=== PATIENT | male | born 1980 | race Caucasian/White ===

== ENCOUNTER 2020-01-30 05:39 | Outpatient (CLI) | payer BC ==
[~2020-01-30] VITALS: Ht 182 cm; Wt 113.6 kg
[~2020-01-30 05:39] MED LIST: AC500T PO; ACHD5005 PO; CPR500T PO; HYDR118S10 PO; IBUP-30 PO; LRT10T PO; METR500T PO; NAPR220T29 PO; NYST1000 PO; ONDA2VIA PO; PANT20TA2 PO
[2020-01-30] MEDS ORDERED: BREX3TAB PO (12:33)
[2020-01-30] MEDS ORDERED: LISD40CA3 PO (12:33)
[2020-01-30] MEDS ORDERED: FLUO20CA42 PO (12:33)
== END 2020-01-30 12:46 | disposition home or self-care (01) ==
LOC: PREOP 05:39
PROVIDERS: ATTEND Surgery
DX: Z01.818 Encounter for other preprocedural examination (principal)

== ENCOUNTER 2021-06-27 17:17 | Emergency (ER) | payer SELFPAY ==
[~2021-06-27] VITALS: Ht 182 cm; Wt 120.2 kg
[~2021-06-27 17:17] MED LIST changes: +BREX3TAB PO; +FLUO20CA42 PO; +LISD40CA3 PO
[2021-06-27] MEDS ORDERED: LIDOCAINE UROJET 2% GEL 10 ML PKG ONE (17:49)
[2021-06-27 17:52] LABS: BASOPHILS # (AUTO) 0.1 10^3/uL (0.0-0.1); BASOPHILS % (AUTO) 1 % (0-10); EOSINOPHILS # (AUTO) 0.2 10^3/uL (0.0-0.3); EOSINOPHILS % (AUTO) 3 % (0-10); HEMATOCRIT 42 % (40-54); LYMPHOCYTES # (AUTO) 1.6 10^3/uL (1.0-4.0); LYMPHOCYTES % (AUTO) 28 % (12-44); MEAN CORPUSCULAR HEMOGLOBIN 30 pg (25-34); MEAN CORPUSCULAR HGB CONC 33 g/dL (32-36); MEAN CORPUSCULAR VOLUME 89 fL (80-99); MEAN PLATELET VOLUME 9.4 fL (9.0-12.2); MONOCYTES # (AUTO) 0.7 10^3/uL (0.0-1.0); MONOCYTES % (AUTO) 12 % (0-12); NEUTROPHILS # (AUTO) 3.2 10^3/uL (1.8-7.8); NEUTROPHILS % (AUTO) 55 % (42-75); PLATELET COUNT 264 10^3/uL (130-400); WHITE BLOOD COUNT 5.8 10^3/uL (4.3-11.0)
[2021-06-27] MEDS ORDERED: LACTATED RINGERS 1,000 ML IV ONE (18:00)
[2021-06-27 18:03] LABS: ALBUMIN 3.8 GM/DL (3.2-4.5); POTASSIUM 4.2 MMOL/L (3.6-5.0)
[2021-06-27 18:04] LABS: CALCIUM 8.7 MG/DL (8.5-10.1)
[2021-06-27 18:05] LABS: BILIRUBIN,URINE NEGATIVE (NEGATIVE); CLARITY,URINE CLEAR; COLOR,URINE YELLOW; GLUCOSE, URINE (UA) NEGATIVE (NEGATIVE); KETONES,URINE NEGATIVE (NEGATIVE); LEUKOCYTE ESTERASE ,URINE NEGATIVE (NEGATIVE); NITRITE,URINE NEGATIVE (NEGATIVE); PROTEIN,URINE NEGATIVE (NEGATIVE)
[2021-06-27 18:07] LABS: BILIRUBIN,TOTAL 0.4 MG/DL (0.1-1.0)
[2021-06-27] MEDS ORDERED: PANT20TA2 PO (18:07)
[2021-06-27] MEDS ORDERED: BUPR1FIL3 SL (18:07)
[2021-06-27] MEDS ORDERED: DULO30CA3 PO (18:07)
[2021-06-27] MEDS ORDERED: PROM25TA14 (18:07)
[2021-06-27] MEDS ORDERED: PROM25TA14 PO (18:07)
[2021-06-27] MEDS ORDERED: CITA10TA12 PO (18:07)
[2021-06-27] MEDS ORDERED: ARIP10TA10 PO (18:07)
[2021-06-27 18:09] LABS: CREATININE SERUM 0.87 MG/DL (0.60-1.30)
[2021-06-27 18:14] LABS: BACTERIA,URINE TRACE /HPF; WBC,URINE RARE /HPF
[2021-06-27 18:33] LABS: AMYLASE 36 U/L (25-125)
[2021-06-27 18:34] LABS: AMPHETAMINE SCREEN, URINE NEGATIVE (NEGATIVE); BARBITURATE SCREEN URINE NEGATIVE (NEGATIVE); BENZODIAZEPINES SCREEN URINE NEGATIVE (NEGATIVE); CANNABINOID SCREEN, URINE POSITIVE (NEGATIVE); COCAINE SCREEN URINE NEGATIVE (NEGATIVE); METHADONE STAT NEGATIVE (NEGATIVE); METHAMPHETAMINE SCREEN URINE S NEGATIVE (NEGATIVE); OPIATE SCREEN URINE NEGATIVE (NEGATIVE); OXYCODONE STAT NEGATIVE (NEGATIVE); PROPOXYPHENE STAT NEGATIVE (NEGATIVE); TRICYCLIC ANTIDEPRESSANTS SCRE NEGATIVE (NEGATIVE)
[2021-06-27] MEDS ORDERED: ONDANSETRON 4 MG/2 ML (SDV) Z0FRAN IVP STA (18:38)
[2021-06-27 18:42] LABS: LIPASE 54 U/L (8-78)
[2021-06-27 18:51] LABS: INR 0.9 (0.8-1.4); PROTHROMBIN TIME PATIENT 12.7 SEC (12.2-14.7)
[2021-06-27] MEDS ORDERED: NS 100 ML (IVPB) BAG IV ONE (19:00)
[2021-06-27] MEDS ORDERED: HOLD METFORMIN - RECEIVED CONTRAST 20 ML VIAL IV SCH (19:00)
[2021-06-27] MEDS ORDERED: IOHEXOL 350 MG/ML 100 ML (OMNIPAQUE 350) VIAL IV ONE (19:00)
--- NOTE | 2021-06-27 19:11 | ED GI ---
General Chief Complaint: Abdominal/GI Problems Stated Complaint: STOMACH DISTENDED/SOB/UNABLE TO URINATE Nursing Triage Note: PT PRESENTS TO ED VIA POV FROM HOME WITH COMPLAINTS OF ABDOMINAL BLOATING AND PAIN, SOA WITH EXERTION, INABILITY TO URINATE, AND DEHYDRATION. History of Present Illness Date Seen by Provider: Jun 27, 2021 Time Seen by Provider: 18:00 Initial Comments 40-year-old male presents for abdominal distention, swelling, shortness of air and difficulty urinating. He reports a history of enlarged prostate and self cathing that occurs every 6 to 9 months. He denies any recent illness, fevers or changes in medication. He is on Suboxone and denies any recent drug use. He has been trying to decrease his alcohol intake, he has only had 2 drinks in the last few days. His medical management is by Dr. Denton at [facility]. Denies chest pain. History of elevated Liver enzymes approx 6 months ago, he was managed at [facility] by Dr. Crow. He vapes and obtains his cartridges at convenience store Timing/Duration: 12-24 Hours Severity/Quality: Moderate Location: Generalized Abdomen Radiation: RUQ Associated Symptoms: No Back Pain, No Chest Pain, No Diaphoresis, No Fever/Chills, No Headache; Nausea/Vomiting, Shortness of Air, Swelling/Mass in Abdomen; No Syncope Allergies and Home Medications Allergies Coded Allergies: No Known Drug Allergies (Unverified , 01/30/20) Patient Home Medication List Home Medication List Reviewed: Yes Aripiprazole (Abilify) 10 Mg Tablet, 10 MG PO, (Reported) Entered as Reported by: ELMER BRAY on 06/27/211806 Last Action: New Order Buprenorphine HCl/Naloxone HCl (Suboxone 8 mg-2 mg Sl Film) 1 Each Film, 1 EACH SL, (Reported) Entered as Reported by: ELMER BRAY on 06/27/211806 Last Action: New Order Citalopram Hydrobromide (Celexa) 10 Mg Tablet, 10 MG PO, (Reported) Entered as Reported by: ELMER BRAY on 06/27/211806 Last Action: New Order Duloxetine HCl (Cymbalta) 30 Mg Capsule.dr, 30 MG PO, (Reported) Entered as Reported by: ELMER BRAY on 06/27/211806 Last Action: New Order Pantoprazole Sodium (Protonix) 20 Mg Tablet.dr, 20 MG PO DAILY, (Reported) Entered as Reported by: ELMER BRAY on 06/27/211806 Last Action: New Order Promethazine HCl (Promethazine Tablet) 25 Mg Tablet, (Reported) Entered as Reported by: ELMER BRAY on 06/27/211806 Last Action: New Order Promethazine HCl (Promethazine Tablet) 25 Mg Tablet, 25 MG PO Q6H PRN for NAUSEA/VOMITING, (Reported) Entered as Reported by: ELMER BRAY on 06/27/211806 Last Action: New Order Discontinued Medications Brexpiprazole (Rexulti) 3 Mg Tablet, 3 MG PO DAILY, (Reported) Discontinued Reason: No Longer Taking Entered as Reported by: UMER OBRIEN on 01/30/201232 Last Action: Discontinued Fluoxetine HCl (Prozac) 20 Mg Capsule, 20 MG PO DAILY, (Reported) Discontinued Reason: No Longer Taking Entered as Reported by: UMER OBRIEN on 01/30/201232 Last Action: Discontinued Lisdexamfetamine Dimesylate (Vyvanse) 40 Mg Capsule, 40 MG PO DAILY, (Reported) Discontinued Reason: No Longer Taking Entered as Reported by: UMER OBRIEN on 01/30/201232 Last Action: Discontinued Review of Systems Review of Systems Constitutional: see HPI; No dizziness, No fever; malaise EENTM: No Symptoms Reported, See HPI Respiratory: See HPI; Denies Cough; SOA With Exertion; Denies SOA at Rest, Denies Wheezing Cardiovascular: No Symptoms Reported, See HPI Gastrointestinal: See HPI, Abdomen Distended, Abdominal Pain; Denies Blood Streaked Stools, Denies Diarrhea; Nausea, Poor Appetite; Denies Rectal Bleeding Genitourinary: See HPI, Other (Dysuria) Musculoskeletal: no symptoms reported, see HPI Skin: no symptoms reported, see HPI All Other Systems Reviewed Negative Unless Noted: Yes Past Pfqoxss-Ackoez-Ijewvz Hx Patient Social History Tobacco Use?: No Substance use?: No Alcohol Use?: Yes Alcohol type: Beer Alcohol Frequency: Daily Pt feels they are or have been: No Immunizations Up To Date Tetanus Booster (TDap): Less than 5yrs PED Vaccines UTD: No First/Initial COVID19 Vaccinat: YES-MODERNA Second COVID19 Vaccination Andrade: YES-MODERNA Seasonal Allergies Seasonal Allergies: No Past Medical History Surgery/Hospitalization HX: PROSTATE, GERD, CHRONIC ABDOMINAL ISSUES, Surgeries: Yes (EGD,COLONOSCOPY, WISDOM TEETH) Respiratory: No Cardiac: No Neurological: No Reproductive Disorders: No Sexually Transmitted Disease: No HIV/AIDS: No Genitourinary: No Gastrointestinal: Yes (RECTAL BLEEDING) Colitis, Gastroesophageal Reflux, Hiatal Hernia, Ulcer Musculoskeletal: No Endocrine: No HEENT: No (GLASSES) Loss of Vision: Denies Hearing Impairment: Denies Cancer: No Psychosocial: Yes Anxiety, Depression Integumentary: Yes (LEFT THUMB) Eczema Blood Disorders: No Adverse Reaction/Blood Tranf: No (N/A) Family Medical History Reviewed Nursing Family Hx Not obtainable due to adoption Physical Exam Vital Signs Vital Signs - First Documented 06/27/21 06/27/21 17:53 20:38 Temp 36.1 Pulse 105 Resp 18 B/P (MAP) 158/113 (128) Pulse Ox 99 O2 Delivery Room Air Capillary Refill : Less Than 3 Seconds Height/Weight/BMI Height: 6'0.00" Weight: 235lbs. 0.0oz. 106.200247tt; 36.00 BMI Method:Stated General Appearance: WD/WN, mild distress HEENT: PERRL/EOMI, normal ENT inspection, TMs normal, pharynx normal Neck: non-tender, full range of motion, supple, normal inspection Respiratory: chest non-tender, lungs clear, normal breath sounds; No respiratory distress Cardiovascular: normal peripheral pulses, regular rate, rhythm, tachycardia (95-102) Gastrointestinal: abnormal bowel sounds (Hyperactive), distended, tenderness (Right upper quadrant) Extremities: normal range of motion, non-tender, normal capillary refill, pedal edema (1+) Back: normal inspection, no CVA tenderness Neurologic/Psychiatric: no motor/sensory deficits, alert, normal mood/affect, oriented x 3 Skin: normal color, warm/dry; No jaundice Exam Comments generalized edema and becomes SOA easily with exertion or talking. Progress/Results/Core Measures Results/Orders Lab Results Laboratory Tests Test 06/27/21 17:45 06/27/21 18:00 Range/Units White Blood Count 5.8 4.3-11.0 10^3/uL Red Blood Count 4.70 4.30-5.52 10^6/uL Hemoglobin 14.0 13.3-17.7 g/dL Hematocrit 42 40-54 % Mean Corpuscular Volume 89 80-99 fL Mean Corpuscular Hemoglobin 30 25-34 pg Mean Corpuscular Hemoglobin Concent 33 32-36 g/dL Red Cell Distribution Width 12.1 10.0-14.5 % Platelet Count 264 130-400 10^3/uL Mean Platelet Volume 9.4 9.0-12.2 fL Immature Granulocyte % (Auto) 0 % Neutrophils (%) (Auto) 55 42-75 % Lymphocytes (%) (Auto) 28 12-44 % Monocytes (%) (Auto) 12 0-12 % Eosinophils (%) (Auto) 3 0-10 % Basophils (%) (Auto) 1 0-10 % Neutrophils # (Auto) 3.2 1.8-7.8 10^3/uL Lymphocytes # (Auto) 1.6 1.0-4.0 10^3/uL Monocytes # (Auto) 0.7 0.0-1.0 10^3/uL Eosinophils # (Auto) 0.2 0.0-0.3 10^3/uL Basophils # (Auto) 0.1 0.0-0.1 10^3/uL Immature Granulocyte # (Auto) 0.0 0.0-0.1 10^3/uL Prothrombin Time 12.7 12.2-14.7 SEC INR Comment 0.9 0.8-1.4 Activated Partial Thromboplast Time 28 24-35 SEC Sodium Level 135 135-145 MMOL/L Potassium Level 4.2 3.6-5.0 MMOL/L Chloride Level 98 98-107 MMOL/L Carbon Dioxide Level 21 21-32 MMOL/L Anion Gap 16 H 5-14 MMOL/L Blood Urea Nitrogen 10 7-18 MG/DL Creatinine 0.87 0.60-1.30 MG/DL Estimat Glomerular Filtration Rate 113 BUN/Creatinine Ratio 11 Glucose Level 151 H 70-105 MG/DL Calcium Level 8.7 8.5-10.1 MG/DL Corrected Calcium 8.9 8.5-10.1 MG/DL Total Bilirubin 0.4 0.1-1.0 MG/DL Aspartate Amino Transf (AST/SGOT) 44 H 5-34 U/L Alanine Aminotransferase (ALT/SGPT) 36 0-55 U/L Alkaline Phosphatase 71 40-136 U/L Troponin I < 0.028 <0.028 NG/ML C-Reactive Protein High Sensitivity 3.49 H 0.00-0.50 MG/DL B-Type Natriuretic Peptide 157.9 H <100.0 PG/ML Total Protein 7.0 6.4-8.2 GM/DL Albumin 3.8 3.2-4.5 GM/DL Amylase Level 36 25-125 U/L Lipase 54 8-78 U/L Serum Alcohol < 10 <10 MG/DL Urine Color YELLOW Urine Clarity CLEAR Urine pH 6.0 5-9 Urine Specific [place] 1.010 L 1.016-1.022 Urine Protein NEGATIVE NEGATIVE Urine Glucose (UA) NEGATIVE NEGATIVE Urine Ketones NEGATIVE NEGATIVE Urine Nitrite NEGATIVE NEGATIVE Urine Bilirubin NEGATIVE NEGATIVE Urine Urobilinogen 0.2 < = 1.0 MG/DL Urine Leukocyte Esterase NEGATIVE NEGATIVE Urine RBC (Auto) NEGATIVE NEGATIVE Urine RBC NONE /HPF Urine WBC RARE /HPF Urine Squamous Epithelial Cells NONE /HPF Urine Renal Epithelial Cells NONE /HPF Urine Crystals NONE /LPF Urine Bacteria TRACE /HPF Urine Casts NONE /LPF Urine Mucus NEGATIVE /LPF Urine Culture Indicated NO Urine Opiates Screen NEGATIVE NEGATIVE Urine Oxycodone Screen NEGATIVE NEGATIVE Urine Methadone Screen NEGATIVE NEGATIVE Urine Propoxyphene Screen NEGATIVE NEGATIVE Urine Barbiturates Screen NEGATIVE NEGATIVE Ur Tricyclic Antidepressants Screen NEGATIVE NEGATIVE Urine Phencyclidine Screen NEGATIVE NEGATIVE Urine Amphetamines Screen NEGATIVE NEGATIVE Urine Methamphetamines Screen NEGATIVE NEGATIVE Urine Benzodiazepines Screen NEGATIVE NEGATIVE Urine Cocaine Screen NEGATIVE NEGATIVE Urine Cannabinoids Screen POSITIVE H NEGATIVE My Orders Orders - ZOIE PRETTY HYBRID POWERTRAIN DEVELOPMENT ENGINEER Cbc With Automated Diff (06/27/21 17:43) Comprehensive Metabolic Panel (06/27/21 17:43) Hs C Reactive Protein (06/27/21 17:43) Ua Culture If Indicated (06/27/21 17:43) Lidocaine 2% (Urojet) (Xylocaine Urojet) (06/27/21 17:49) Ed Iv/Invasive Line Start (06/27/21 17:52) Lactated Ringers (Lr 1000 Ml Iv Solution (06/27/21 18:00) Alcohol (06/27/21 18:19) Bnp Jd (06/27/21 18:19) Drug Screen Stat (Urine) (06/27/21 18:19) Amylase (06/27/21 18:27) Lipase (06/27/21 18:27) Protime With Inr (06/27/21 18:36) Partial Thromboplastin Time (06/27/21 18:36) Ondansetron Injection (Zofran Injectio (06/27/21 18:38) Chest 1 View, Ap/Pa Only (06/27/21 18:39) Iohexol Injection (Omnipaque 350 Mg/Ml 1 (06/27/21 19:00) Received Contrast (Hold Metformin- Contr (06/27/21 19:00) Ns (Ivpb) (Sodium Chloride 0.9% Ivpb Bag (06/27/21 19:00) Ct Angelita Chest/Noang Abd-Pelv W (06/27/21 18:39) Troponin I Moore (06/27/21 19:26) Promethazine Injection (Phenergan Injec (06/27/21 20:32) Furosemide Injection (Lasix Injection) (06/27/21 20:32) Medications Given in ED Current Medications Medications Dose Ordered Sig/Olivia Route Start Time Stop Time Status Last Admin Dose Admin Iohexol 100 ml ONCE ONCE IV 06/27/21 19:00 06/27/21 19:01 DC 06/27/21 19:24 85 ML Lactated Ringer's 1,000 ml @ 0 mls/hr Q0M ONCE IV 06/27/21 18:00 06/27/21 18:01 DC 06/27/21 18:36 0 MLS/HR Lidocaine HCl 10 ml STK-MED ONCE .ROUTE 06/27/21 17:49 06/27/21 17:52 DC 06/27/21 18:00 10 ML Sodium Chloride 100 ml ONCE ONCE IV 06/27/21 19:00 06/27/21 19:01 DC 06/27/21 19:24 80 ML Vital Signs/I&O 06/27/21 06/27/21 17:53 20:38 Temp 36.1 Pulse 105 95 Resp 18 20 B/P (MAP) 158/113 (128) 129/102 Pulse Ox 99 98 O2 Delivery Room Air Blood Pressure Mean: 128 Progress Progress Note : Time: 18:00 Progress Note Patient seen and evaluated, will obtain labs, patient able to self cath with 800 mls yellow urine returned. [address] Mclean with US. Will obtain CT angio of the chest and CT with contrast of the abdomen and pelvis. 1914 CT negative for PE, ascites or other acute findings. Will give patient Lasix 40 mg IV. He is also complaining of nausea, he has not vomited, will give Phenergan 25 mg IV. 1929 spoke to patient about cannabinoids in urine, patient states that he has not used it for 4 to 6 weeks. He was inpatient at [facility] in early May. He has not been using any illicit drugs since then. 1999 RN went into room to give medications, he became upset and verbally aggressive with the RN. She reports he said the provider offended him by asking about cannabinoids use. Went into her room as he was yelling to have his IV ta edmund out and allowed to leave AMA. He immediately stated that he was not suicidal and not harm others. He requested the RN to be removed from his room as she was calling him crazy and aggressive with him. Additional staff came into the room and calmed him. He was not verbally aggressive, he became tearful apologizing for his behavior. He continues to state he wishes to leave AMA. IV removed at his request, he only received 500 ml of the LR and has not received the medications. 2014 Dr. Mclean in Room, patient agreeable to discharge and will follow up with GI specialist. He is supposed to be having a colonoscopy and EGD in the near future with Dr. Turner. 2029 patient agreeable to receive the Lasix and Phenergan IM. Patient continues to be apologetic about his behaviors. Casey, Casing Machine Operator in room and provided catheters for patient to self-cath, if needed. Discussed the incident with patient. Patient remained cooperative and no further complaints. Discharge instructions and return precautions reviewed with him. Diagnostic Imaging Diagonstic Imaging: Xray Plain Films/CT/US/NM/MRI: chest Comments [place], [place] NAME: INA HIGGINS MED REC#: [id number] PT STATUS: REG ER : 1980 PHYSICIAN: ZOIE PRETTY HYBRID POWERTRAIN DEVELOPMENT ENGINEER ADMIT DATE: 06/27/21/ER Draft Date of Exam:06/27/21 CHEST 1 VIEW, AP/PA ONLY PATIENT HISTORY: Dyspnea. TECHNIQUE: Single frontal view of the chest. COMPARISON: None FINDINGS: The lung volumes are normal. No focal consolidation is seen. No large pleural effusion or pneumothorax is seen. The cardiomediastinal silhouette is normal in size and contour. No acute osseous abnormality is seen. IMPRESSION: No acute pulmonary abnormality seen. Dictated on workstation # [id number] Dict: 06/27/211907 Trans: 06/27/211910 CV [id number] Interpreted by: JONATHAN DOWNING MD Electronically signed by: Reviewed: Reviewed by Me Diagonstic Imaging: CT Plain Films/CT/US/NM/MRI: chest, abdomen, pelvis Comments NAME: INA HIGGINS MED REC#: [id number] PT STATUS: REG ER : 1980 PHYSICIAN: ZOIE PRETTY ADMIT DATE: 06/27/21/ER Draft Date of Exam:06/27/21 CT ANGELITA CHEST/NOANG ABD-PELV W INDICATION: PE suspected, high prob. Abdominal bloating and pain. Shortness of air with exertion. Unable to urinate. Dehydration. COMPARISON: CT abdomen and pelvis from 05/02/2014 TECHNIQUE: CTA chest, abdomen and pelvis Thin axial sections through the chest, abdomen and pelvis are obtained following intravenous contrast bolus. Multiplanar MIP images were reconstructed and reviewed. All CT scans use one or more of the following dose optimizing techniques: automated exposure control, MA and/or KvP adjustment based on patient size and exam type or iterative reconstruction. FINDINGS: CTA CHEST: The pulmonary arteries are diagnostic to the segmental level. No filling defects are seen. The heart is normal in size. There is no pericardial effusion. The aorta is normal in caliber. There is no mediastinal adenopathy. No focal consolidation is seen. No central endobronchial lesions are identified. There is no pleural effusion or pneumothorax. No acute osseous abnormality is seen. CT ABDOMEN AND PELVIS: There is fatty infiltration of the liver. No focal hepatic lesions are seen. The spleen appears normal. The pancreas is normal. The adrenal glands are normal. The kidneys demonstrate no enhancing lesions. There is a simple cyst on the left kidney which measures up to 2.3 cm. There is no hydronephrosis. The bowel loops are nondistended without obstruction. The appendix is normal. The aorta is normal in caliber. No lymphadenopathy is seen. No acute osseous abnormality is seen. IMPRESSION: 1. No pulmonary embolus. No acute pulmonary abnormality. 2. Hepatic steatosis. No acute abnormality is seen in the abdomen or pelvis. Dictated on workstation # [id number] Dict: 06/27/211924 Trans: 06/27/211930 CV [id number] Interpreted by: KARLA Reviewed: Reviewed by Me Departure Impression Primary Impression: Nausea alone Additional Impressions: Edema Qualified Codes: R60.1 - Generalized edema Liver disease Urinary retention Disposition: HOME, SELF-CARE Condition: Stable Departure-Patient Inst. Decision time for Depature: 20:15 Referrals: MARVIN DENTON MD (PCP/Family) Primary Care Physician Patient Instructions: Dependent Edema (DC), Nonalcoholic Fatty Liver Disease (DC), Urinary Retention (DC) Add. Discharge Instructions: Continue to take your home medications as prescribed. Follow-up with Dr. Denton and Dr. Turner if symptoms are not improving or worsen. Return to the emergency department for new, urgent healthcare needs. All discharge instructions reviewed with patient and/or family. Voiced unders tanding. Copy Copies To 1: MARVIN DENTON MD, AMY ARNP Jun 27, 2021 19:11
--- NOTE | 2021-06-27 19:32 | Diagnostic Imaging Report ---
INDICATION: PE suspected, high prob. Abdominal bloating and pain. Shortness of air with exertion. Unable to urinate. Dehydration. COMPARISON: CT abdomen and pelvis from 05/02/2014 TECHNIQUE: CTA chest, abdomen and pelvis Thin axial sections through the chest, abdomen and pelvis are obtained following intravenous contrast bolus. Multiplanar MIP images were reconstructed and reviewed. All CT scans use one or more of the following dose optimizing techniques: automated exposure control, MA and/or KvP adjustment based on patient size and exam type or iterative reconstruction. FINDINGS: CTA CHEST: The pulmonary arteries are diagnostic to the segmental level. No filling defects are seen. The heart is normal in size. There is no pericardial effusion. The aorta is normal in caliber. There is no mediastinal adenopathy. No focal consolidation is seen. No central endobronchial lesions are identified. There is no pleural effusion or pneumothorax. No acute osseous abnormality is seen. CT ABDOMEN AND PELVIS: There is fatty infiltration of the liver. No focal hepatic lesions are seen. The spleen appears normal. The pancreas is normal. The adrenal glands are normal. The kidneys demonstrate no enhancing lesions. There is a simple cyst on the left kidney which measures up to 2.3 cm. There is no hydronephrosis. The bowel loops are nondistended without obstruction. The appendix is normal. The aorta is normal in caliber. No lymphadenopathy is seen. No acute osseous abnormality is seen. IMPRESSION: 1. No pulmonary embolus. No acute pulmonary abnormality. 2. Hepatic steatosis. No acute abnormality is seen in the abdomen or pelvis. Dictated by: Dictated on workstation # [id number]
[2021-06-27] MEDS ORDERED: FUROSEMIDE 40 MG/4 ML INJ (LASIX) IVP STA (19:47)
[2021-06-27] MEDS ORDERED: PROMETHAZINE INJ 25 MG/ML (PHENERGAN) AMP IVP STA (20:05)
[2021-06-27] MEDS ORDERED: PROMETHAZINE INJ 25 MG/ML (PHENERGAN) AMP IM STA (20:32)
[2021-06-27] MEDS ORDERED: FUROSEMIDE 40 MG/4 ML INJ (LASIX) IM STA (20:32)
[2021-06-27 20:38] VITALS: BP 129/102
== END 2021-06-27 20:38 | disposition home or self-care (01) ==
LOC: EDUNIT# 17:17 → ER 17:19
DX: K76.9 Liver disease, unspecified (principal); R33.9 Retention of urine, unspecified
CPT/HCPCS: 71045; 71275; 74177; 80053; 80306; 81000; 82150; 83690; 83880; 84484; 85025; 85610; 85730; 86141; 99284; G0479; G0480; 36415; 80307; 80320